=== PATIENT | female | born 1980 | race Caucasian/White ===

== ENCOUNTER 2017-05-19 08:40 | Day surgery (SDC) | payer SELFPAY ==
[~2017-05-19] VITALS: Ht 175.3 cm; Wt 91.2 kg
[~2017-05-19 08:40] MED LIST: BACTRIM DS TAB1 EAC2 PO; BACTRIM DS1 TA1 PO; BACTRIM DS1 TAB PO; BIRTH CONTROL PILLS; DEPAKOTE; DILAUDID2 MG; DURAGESIC1 PATC; GABAPENTIN300 MG PO; GABAPENTIN600 M2 PO; H PO; HYDROCODON-ACE1 EAC5 PO; IBUPROFEN800 MG PO; KEFLEX500 MG PO; KLONOPIN1 M1 PO; LYRICA; LYRICA25 MG; LYRICA25 MG PO; MEDROL4 MG/DOSE- PO; MELATONIN5 M1 PO; METHADONE HCL10 MG PO; NICODERM21 MG/PATC TD; NORCO 5/325 TAB1 TAB PO; OPANA PO; OXYCODONE/APAP PO; PERCOCET 5/3251 TAB PO; PERCOCET 7.5-31 EACH PO; SOMA350 MG PO; TIZANADINE HCL4 MG; WELLBUTRIN; ZYVOX600 MG PO; [UNRECOGNIZED DRUG - REMARK]
[2017-05-19 09:37] LABS: HGB-HEMOGLOBIN 13.2 gm/dl (12.0-15.5); MCV (MEAN CELL VOLUME) 89.9 fl (82.0-96.0); RED CELL DISTRIBUTION WIDTH 14.7 % (12.4-16.4)
== END 2017-05-19 11:55 ==
LOC: SHSB 08:40 → ENDOS 08:40
PROVIDERS: Anesthesiology
PROC: 0DB68ZX Excision of Stomach, Via Natural or Artificial Opening Endoscopic, Diagnostic (ICD-10-PCS; principal; 2017-05-19)
PROC: 0DB98ZX Excision of Duodenum, Via Natural or Artificial Opening Endoscopic, Diagnostic (ICD-10-PCS; 2017-05-19)
PROC: 0DBE8ZX Excision of Large Intestine, Via Natural or Artificial Opening Endoscopic, Diagnostic (ICD-10-PCS; 2017-05-19)
PROC: 0DBB8ZX Excision of Ileum, Via Natural or Artificial Opening Endoscopic, Diagnostic (ICD-10-PCS; 2017-05-19)
DX: K64.0 First degree hemorrhoids (principal); K64.1 Second degree hemorrhoids; M19.90 Unspecified osteoarthritis, unspecified site; F41.9 Anxiety disorder, unspecified; F31.9 Bipolar disorder, unspecified; K21.9 Gastro-esophageal reflux disease without esophagitis; F17.210 Nicotine dependence, cigarettes, uncomplicated; Z79.1 Long term (current) use of non-steroidal anti-inflammatories (NSAID); Z79.899 Other long term (current) drug therapy; Z87.11 Personal history of peptic ulcer disease
CPT/HCPCS: J2405